=== PATIENT | female | born 1970 | race Caucasian/White ===

== ENCOUNTER → 2017-01-10 | Outpatient (CLI) | payer BC ==
--- NOTE | 2017-01-10 08:05 | US ---
EXAMINATION TYPE: US liver DATE OF EXAM: 01/10/2017 COMPARISON: NONE CLINICAL HISTORY: R94.5 Abnormal LFT. EXAM MEASUREMENTS: Liver Length: 12.0 cm Gallbladder Wall: 0.3 cm CBD: 0.4 cm Right Kidney: 11.5 x 4.7 x 5.3 cm Pancreas: visualized portions wnl Liver: wnl Gallbladder: No stones seen Evidence for sonographic Carmona's sign: No CBD: wnl Right Kidney: No hydronephrosis or masses seen IMPRESSION: No worrisome intrahepatic mass or intrahepatic ductal dilatation is seen.
== END | disposition home or self-care (01) ==
LOC: RADUSWWP 06:53
PROVIDERS: ATTEND Family Medicine
DX: R94.5 Abnormal results of liver function studies (principal)
CPT/HCPCS: 76705

== ENCOUNTER → 2017-09-17 | Outpatient (CLI) | payer BC ==
--- NOTE | 2017-09-19 07:45 | MM ---
Reason for exam: screening (asymptomatic). Last mammogram was performed 2 years and 6 months ago. History: Benign right mammotome panel of the right breast, October 06, 2005. Benign excisional biopsy of the left breast, April 01, 2001. Took hormonal contraceptives for 10 years beginning at age 15. Physical Findings: A clinical breast exam by your physician is recommended on an annual basis and results should be correlated with mammographic findings. MG 3D Screening Mammo W/Cad Bilateral CC and MLO view(s) were taken. Prior study comparison: March 02, 2015, bilateral MG screening mammo w CAD. February 23, 2014, bilateral MG screening mammo w CAD. No suspicious abnormality. No significant changes when compared with prior studies. ASSESSMENT: Negative, BI-RAD 1 RECOMMENDATION: Routine screening mammogram of both breasts in 1 year.
== END | disposition home or self-care (01) ==
LOC: RADMAMWWP 15:51
PROVIDERS: ATTEND Obstetrics & Gynecology
DX: Z12.31 Encounter for screening mammogram for malignant neoplasm of breast (principal)
CPT/HCPCS: 77063; 77067

== ENCOUNTER → 2019-08-07 | Outpatient (CLI) | payer BC ==
--- NOTE | 2019-08-08 14:40 | MM ---
Reason for exam: screening (asymptomatic). Last mammogram was performed 1 year and 11 months ago. History: Benign right mammotome panel of the right breast, October 06, 2005. Benign excisional biopsy of the left breast, April 01, 2001. Took hormonal contraceptives for 10 years beginning at age 15. Physical Findings: A clinical breast exam by your physician is recommended on an annual basis and results should be correlated with mammographic findings. MG 3D Screening Mammo W/Cad Bilateral CC and MLO view(s) were taken. Prior study comparison: September 17, 2017, bilateral MG 3d screening mammo w/cad. March 02, 2015, bilateral MG screening mammo w CAD. The breast tissue is heterogeneously dense. This may lower the sensitivity of mammography. There is no discrete abnormality. No significant changes when compared with prior studies. ASSESSMENT: Negative, BI-RAD 1 RECOMMENDATION: Routine screening mammogram of both breasts in 1 year.
== END | disposition home or self-care (01) ==
LOC: RADMAMWWP 11:09
PROVIDERS: ATTEND Family Medicine
DX: Z12.31 Encounter for screening mammogram for malignant neoplasm of breast (principal)
CPT/HCPCS: 77063; 77067

== ENCOUNTER → 2020-06-24 | Outpatient (CLI) | payer BC | END | disposition home or self-care (01) | LOC: LABWHC1 11:50 | PROVIDERS: ATTEND Family Medicine | DX: Z03.89 Encounter for observation for other suspected diseases and conditions ruled out (principal) | CPT/HCPCS: U0003; C9803 ==

== ENCOUNTER → 2021-01-03 | Outpatient (CLI) | payer BC ==
--- NOTE | 2021-01-05 14:08 | MM ---
Reason for exam: screening (asymptomatic). Last mammogram was performed 1 year and 5 months ago. History: Patient is postmenopausal. Benign right mammotome panel of the right breast, October 06, 2005. Benign excisional biopsy of the left breast, April 01, 2001. Took hormonal contraceptives for 10 years beginning at age 15. Taking progesterone for 3 years beginning at age 48. Physical Findings: A clinical breast exam by your physician is recommended on an annual basis and results should be correlated with mammographic findings. MG 3D Screening Mammo W/Cad Bilateral CC and MLO view(s) were taken. Prior study comparison: August 07, 2019, bilateral MG 3d screening mammo w/cad. September 17, 2017, bilateral MG 3d screening mammo w/cad. The breast tissue is heterogeneously dense. This may lower the sensitivity of mammography. Previous mammotome biopsy in the right breast. ASSESSMENT: Benign, BI-RAD 2 RECOMMENDATION: Routine screening mammogram of both breasts in 1 year.
== END | disposition home or self-care (01) ==
LOC: RADMAMWWP 16:05
PROVIDERS: ATTEND Family Medicine
DX: Z12.31 Encounter for screening mammogram for malignant neoplasm of breast (principal); Z78.0 Asymptomatic menopausal state
CPT/HCPCS: 77063; 77067

== ENCOUNTER 2021-06-19 11:11 | Emergency (ER) | payer BC ==
[2021-06-19 11:25] VITALS: PULSE 96; RESP 20; TEMP 97.6
[2021-06-19] MEDS ORDERED: SODIUM CHLORIDE 0.9% 1,000 ML IV ONE (12:23)
--- NOTE | 2021-06-19 12:25 | ED ---
Dizziness HPI - General Chief Complaint: Dizziness Stated Complaint: Dizzy; lightheaded Time Seen by Provider: 06/19/21 12:22 Source: patient Mode of arrival: wheelchair Limitations: no limitations - History of Present Illness Initial Comments: Holly is a healthy 51-year-old female presents the ER today via private vehicle for evaluation of fatigue, myalgias, lightheadedness. Patient reports she's been feeling unwell for a few days, she did have diarrhea earlier in the week but has been trying to eat and drink to stay hydrated. She states that she doesn't feel well, feels like she has the flu. Patient was vaccinated for COVID-19 and did have her booster shot approximately 3 weeks ago. 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 - Related Data Allergies Allergy/AdvReac Type Severity Reaction Status Date / Time Penicillins Allergy Rash/Hives Verified 06/19/21 11:25 Sulfa (Sulfonamide Allergy Rash/Hives Verified 06/19/21 11:25 Antibiotics) Review of Systems ROS Statement: Those systems with pertinent positive or pertinent negative responses have been documented in the HPI. ROS Other: All systems not noted in ROS Statement are negative. Past Medical History Past Medical History: No Reported History History of Any Multi-Drug Resistant Organisms: None Reported Past Surgical History: Breast Surgery Past Psychological History: Anxiety Smoking Status: Never smoker Past Alcohol Use History: None Reported Past Drug Use History: None Reported General Exam - General Exam Comments Initial Comments: Physical Exam GENERAL: Patient is well-developed and well-nourished. Patient is nontoxic and well-hydrated and is in no distress. HENT: Normocephalic, Atraumatic. EYES: PERRL, EOMI PULMONARY: Unlabored respirations. CARDIOVASCULAR: RRR Warm and well perfused extremities ABDOMEN: Non-distended SKIN: No rashes or bruising : Deferred NEUROLOGIC: Alert and oriented Normal speech Normal gait MUSCULOSKELETAL: Moving all extremities with no apparent injury PSYCHIATRIC: No SI/HI Limitations: no limitations Course Vital Signs 06/19/21 11:20 Temperature 97.6 F Pulse Rate 96 Respiratory 20 Rate O2 Sat by Pulse 100 Oximetry EKG Findings - EKG Comments: EKG Findings:: EKG was obtained due to complaint of lightheadedness, EKG was obtained 1132 rate is 101 rhythm is sinus tachycardia, normal axis, normal intervals, LA 142 QRS 90 QTc 4:[address] elevations or depressions there is no evidence of acute ischemia or infarction. Medical Decision Making - Medical Decision Making She was seen and evaluated, history is obtained from patient, history and physical exam was unremarkable, patient with flulike illness, labs are obtained there is no signs of dehydration or significant joint abnormality, troponin is negative, patient received 1 L IV fluid reported feeling better. Discussed with patient that she likely has a viral syndrome recommended continued supportive care and outpatient follow-up primary care physician. - Lab Data Result diagrams: 06/19/21 12:48 06/19/21 12:48 Lab Results 06/19/21 06/19/21 06/19/21 Range/Units 12:33 12:48 12:48 WBC 6.9 (3.8-10.6) k/uL RBC 5.10 (3.80-5.40) m/uL Hgb 15.1 (11.4-16.0) gm/dL Hct 46.4 H (34.0-46.0) % MCV 91.0 (80.0-100.0) fL MCH 29.7 (25.0-35.0) pg MCHC 32.6 (31.0-37.0) g/dL RDW 12.4 (11.5-15.5) % Plt Count 321 (150-450) k/uL MPV 7.0 Neutrophils % 72 % Lymphocytes % 18 % Monocytes % 6 % Eosinophils % 2 % Basophils % 1 % Neutrophils # 4.9 (1.3-7.7) k/uL Lymphocytes # 1.2 (1.0-4.8) k/uL Monocytes # 0.4 (0-1.0) k/uL Eosinophils # 0.1 (0-0.7) k/uL Basophils # 0.0 (0-0.2) k/uL Sodium 138 (137-145) mmol/L Potassium 4.7 (3.5-5.1) mmol/L Chloride 107 (98-107) mmol/L Carbon Dioxide 21 L (22-30) mmol/L Anion Gap 10 mmol/L BUN 14 (7-17) mg/dL Creatinine 0.54 (0.52-1.04) mg/dL Est GFR (CKD-EPI)AfAm >90 (>60 ml/min/1.73 sqM) Est GFR (CKD-EPI)NonAf >90 (>60 ml/min/1.73 sqM) Glucose 96 (74-99) mg/dL Calcium 9.2 (8.4-10.2) mg/dL Total Bilirubin 0.3 (0.2-1.3) mg/dL AST 36 (14-36) U/L ALT 43 H (4-34) U/L Alkaline Phosphatase 57 (38-126) U/L Troponin I (0.000-0.034) ng/mL Total Protein 7.4 (6.3-8.2) g/dL Albumin 4.3 (3.5-5.0) g/dL Coronavirus (PCR) Not Detected (Not Detectd) 06/19/21 Range/Units 12:48 WBC (3.8-10.6) k/uL RBC (3.80-5.40) m/uL Hgb (11.4-16.0) gm/dL Hct (34.0-46.0) % MCV (80.0-100.0) fL MCH (25.0-35.0) pg MCHC (31.0-37.0) g/dL RDW (11.5-15.5) % Plt Count (150-450) k/uL MPV Neutrophils % % Lymphocytes % % Monocytes % % Eosinophils % % Basophils % % Neutrophils # (1.3-7.7) k/uL Lymphocytes # (1.0-4.8) k/uL Monocytes # (0-1.0) k/uL Eosinophils # (0-0.7) k/uL Basophils # (0-0.2) k/uL Sodium (137-145) mmol/L Potassium (3.5-5.1) mmol/L Chloride (98-107) mmol/L Carbon Dioxide (22-30) mmol/L Anion Gap mmol/L BUN (7-17) mg/dL Creatinine (0.52-1.04) mg/dL Est GFR (CKD-EPI)AfAm (>60 ml/min/1.73 sqM) Est GFR (CKD-EPI)NonAf (>60 ml/min/1.73 sqM) Glucose (74-99) mg/dL Calcium (8.4-10.2) mg/dL Total Bilirubin (0.2-1.3) mg/dL AST (14-36) U/L ALT (4-34) U/L Alkaline Phosphatase (38-126) U/L Troponin I <0.012 (0.000-0.034) ng/mL Total Protein (6.3-8.2) g/dL Albumin (3.5-5.0) g/dL Coronavirus (PCR) (Not Detectd) Disposition Clinical Impression: Viral syndrome Disposition: HOME SELF-CARE Condition: Stable Instructions (If sedation given, give patient instructions): Lightheadedness (ED) Is patient prescribed a controlled substance at d/c from ED?: No Referrals: Georges Montes MD [Primary Care Provider] - 1-2 days
[2021-06-19 12:56] LABS: Basophils % (A) 1 %; Eosinophils # (A) 0.1 k/uL (0-0.7); Eosinophils % (A) 2 %; HCT 46.4 % (34.0-46.0); HGB 15.1 gm/dL (11.4-16.0); Lymphocytes # (A) 1.2 k/uL (1.0-4.8); Lymphocytes % (A) 18 %; MCH 29.7 pg (25.0-35.0); MCHC 32.6 g/dL (31.0-37.0); Monocytes # (A) 0.4 k/uL (0-1.0); Monocytes % (A) 6 %; Neutrophils # (A) 4.9 k/uL (1.3-7.7); Neutrophils % (A) 72 %; Platelet Count 321 k/uL (150-450); RDW 12.4 % (11.5-15.5); WBC 6.9 k/uL (3.8-10.6)
[2021-06-19 13:07] LABS: ALT 43 U/L (4-34); AST 36 U/L (14-36); African American GFR (CKD) >90 (>60 ml/min/1.73 sqM); Albumin 4.3 g/dL (3.5-5.0); Alkaline Phosphatase 57 U/L (38-126); Anion Gap 10 mmol/L; Blood Urea Nitrogen 14 mg/dL (7-17); Calcium 9.2 mg/dL (8.4-10.2); Carbon Dioxide 21 mmol/L (22-30); Chloride 107 mmol/L (98-107); Glucose 96 mg/dL (74-99); Non-African American GFR(CKD) >90 (>60 ml/min/1.73 sqM); Potassium 4.7 mmol/L (3.5-5.1); Sodium 138 mmol/L (137-145); Total Bilirubin 0.3 mg/dL (0.2-1.3); Total Protein 7.4 g/dL (6.3-8.2)
== END 2021-06-19 14:42 | disposition home or self-care (01) ==
LOC: EC 11:11
DX: B34.9 Viral infection, unspecified (principal); F41.9 Anxiety disorder, unspecified; Z20.822 Contact with and (suspected) exposure to COVID-19; Z88.0 Allergy status to penicillin; Z88.2 Allergy status to sulfonamides
CPT/HCPCS: 36415; 80053; 84484; 85025; 87635; 93005; 99284

== ENCOUNTER → 2022-03-09 | Outpatient (CLI) | payer BC ==
--- NOTE | 2022-03-12 18:34 | MM ---
Reason for Exam: Screening (asymptomatic). Last mammogram was performed 1 year(s) and 2 month(s) ago. Patient History: Menarche at age 11. First Full-Term at age 26. Postmenopausal. Currently using Estrogen, starting at age 48. Currently using Progesterone, beginning at age 48 for 3 years. Hormonal Contraceptives for 10 years from age 15 until age 25. 10/06/2005, Benign Core Biopsy on the right side. 04/01/2001, Benign Excisional Biopsy on the left side. Risk Values: Haley 5 year model risk: 1.8%. NCI Lifetime model risk: 13.8%. Prior Study Comparison: 03/02/2015 Bilateral Screening Mammogram, [facility]. 09/17/2017 Bilateral Screening Mammogram, [facility]. 08/07/2019 Bilateral Screening Mammogram, [facility]. 01/03/2021 Bilateral Screening Mammogram, [facility]. Tissue Density: There are scattered fibroglandular densities. Findings: Analyzed By CAD. Microclip central right breast from prior biopsy. Chronic nodularity posterior central right MLO view. No significant change from prior exams. Overall Assessment: Benign, BI-RAD 2 Management: Screening Mammogram of both breasts in 1 year. 1. Patient should continue monthly self breast exams. 2. A clinical breast exam by your physician is recommended on an annual basis. 3. This exam should not preclude additional follow-up of suspicious palpable abnormalities. Electronically signed and approved by: Karina Nuno M.D. Radiologist
== END | disposition home or self-care (01) ==
LOC: RADMAMWWP 13:47
PROVIDERS: ATTEND Obstetrics & Gynecology
DX: Z12.31 Encounter for screening mammogram for malignant neoplasm of breast (principal); Z78.0 Asymptomatic menopausal state
CPT/HCPCS: 77063; 77067

== ENCOUNTER → 2022-07-27 | Outpatient (CLI) | payer BC ==
[2022-07-29 19:52] LABS: Peanut IgG 2.7 mcg/mL (<2.0)
[2022-07-29 19:53] LABS: Beef IgG 9.1 mcg/mL (<2.0); Cow's Milk IgG 38.7 mcg/mL (<2.0); Pork IgG 2.9 mcg/mL (<2.0); Soybean IgG <2.0 mcg/mL (<2.0); Tomato IgG 2.4 mcg/mL (<2.0)
[2022-07-29 19:54] LABS: Chicken Meat IgG <2.0 mcg/mL (<2.0); Corn IgG 4.4 mcg/mL (<2.0); Potato IgG <2.0 mcg/mL (<2.0); Wheat IgG 2.4 mcg/mL (<2.0)
== END | disposition home or self-care (01) ==
LOC: LABWHC1 10:43
PROVIDERS: ATTEND Otolaryngology
DX: J32.9 Chronic sinusitis, unspecified (principal)
CPT/HCPCS: 36415; 86001

== ENCOUNTER → 2023-03-12 | Outpatient (CLI) | payer BC ==
--- NOTE | 2023-03-13 20:35 | MM ---
Reason for Exam: Screening (asymptomatic). Last screening mammogram was performed 12 month(s) ago. Patient History: Menarche at age 11. First Full-Term at age 26. Postmenopausal. Currently using Estrogen, starting at age 48. Currently using Progesterone, beginning at age 48 for 3 years. Hormonal Contraceptives for 10 years from age 15 until age 25. 10/06/2005, Benign Core Biopsy on the right side. 04/01/2001, Benign Excisional Biopsy on the left side. Risk Values: Haley 5 year model risk: 1.9%. NCI Lifetime model risk: 13.6%. Prior Study Comparison: 08/07/2019 Bilateral Screening Mammogram, [facility]. 01/03/2021 Bilateral Screening Mammogram, [facility]. 03/09/2022 Bilateral MG 3D screening mammo w/cad, [facility]. Tissue Density: The breast tissue is heterogeneously dense. This may lower the sensitivity of mammography. Findings: Analyzed By CAD. Chronic nodularity posterior central right cc view. Microclip right breast from prior biopsy. There is no suspicious group of microcalcifications or new suspicious mass in either breast. Overall Assessment: Benign, BI-RAD 2 Management: Screening Mammogram of both breasts in 1 year. . Patient should continue monthly self-breast exams. A clinical breast exam by your physician is recommended on an annual basis. This exam should not preclude additional follow-up of suspicious palpable abnormalities. Note on Haley scores and lifetime risk: 1. A Haley score greater than 3% is considered moderate risk. If this is the case, consider specialist referral to assess eligibility for a risk reducing agent. 2. If overall lifetime risk for the development of breast cancer is 20% or higher, the patient may qualify for future screening with alternating mammogram and breast MRI. Electronically signed and approved by: Karina Nuno M.D. Radiologist
== END | disposition home or self-care (01) ==
LOC: RADMAMWWP 13:29
PROVIDERS: ATTEND Obstetrics & Gynecology
DX: Z12.31 Encounter for screening mammogram for malignant neoplasm of breast (principal); Z78.0 Asymptomatic menopausal state
CPT/HCPCS: 77063; 77067

== ENCOUNTER → 2023-08-09 | Outpatient (CLI) | payer BC ==
[2023-08-09 15:16] LABS: Albumin 4.2 g/dL (3.8-4.9); Protein, Total 6.8 g/dL (6.2-8.2)
[2023-08-10 11:19] LABS: Free Kappa Lt Chain Qnt, Serum 1.68 mg/dL (0.33-1.94); Free Lambda Lt Chain Qnt, Seru 1.02 mg/dL (0.57-2.63)
[2023-08-10 11:42] LABS: Angiotensin-1 Converting Enz. 25 U/L (8-52)
[2023-08-10 13:43] LABS: C-ANCA <1:20 Titer (<1:20)
[2023-08-10 15:10] LABS: Gamma Globulin 0.93 g/dL (0.70-1.50)
== END | disposition home or self-care (01) ==
LOC: LABWHC1 10:21
PROVIDERS: ATTEND Otolaryngology
DX: J01.91 Acute recurrent sinusitis, unspecified (principal)
CPT/HCPCS: 36415; 82164; 82784; 82785; 83883; 84165; 86255; 86334

== ENCOUNTER → 2024-02-27 | Outpatient (CLI) | payer BC ==
--- NOTE | 2024-02-27 12:33 | US ---
EXAMINATION TYPE: US kidneys/renal and bladder DATE OF EXAM: 02/27/2024 COMPARISON: NONE CLINICAL INDICATION: Female, 54 years old with history of R31.29 HEMATURIA; Pt states right side ABD pain with hematuria EXAM MEASUREMENTS: Right Kidney: cm Left Kidney: cm Right Kidney: No evidence of hydro, lower pole gassed out Left Kidney: No evidence of hydro, lower pole gassed out, possible angiomyolipoma mid= 0.6 x 0.6 x 0. 5 cm Bladder: Possible calculus at right ureteral/bladder junction= 0.9 x 0.7 x 0.8 cm Bilateral Jets seen: Yes There is no evidence for hydronephrosis at this point in time. The urinary bladder is anechoic. Yousif ateral ureteral jets are seen. IMPRESSION: 1. 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 2. I cannot exclude a calculus at the right UVJ without hydronephrosis. Consider unenhanced CT.
== END | disposition home or self-care (01) ==
LOC: RADUSWWP 08:27
PROVIDERS: ATTEND Family Medicine
DX: R31.29 Other microscopic hematuria (principal)
CPT/HCPCS: 76770

== ENCOUNTER → 2024-03-07 | Outpatient (CLI) | payer BC ==
--- NOTE | 2024-03-07 10:15 | CT ---
EXAMINATION TYPE: CT abdomen w con CT DLP: 793 mGycm, Automated exposure control for dose reduction was used. DATE OF EXAM: 03/07/2024 8:08 AM COMPARISON: Renal ultrasound 02/27/2024 CLINICAL INDICATION:Female, 54 years old with history of R10.9 UNSPECIFIED ABDOMINAL PAIN; Abn US TECHNIQUE: Standard CT of the abdomen following the administration of 100 cc of Isovue 300 IV contr ast material and oral contrast. Coronal and sagittal reformats were performed. FINDINGS: LOWER CHEST: Linear scarring and/or atelectasis within the bilateral lower lobes and lingula. ABDOMEN LIVER: Unremarkable GALLBLADDER AND BILE DUCTS: Unremarkable. PANCREAS: Unremarkable. SPLEEN: Unremarkable. ADRENAL GLANDS: Unremarkable. KIDNEYS AND URETERS: No evidence of hydronephrosis or renal calculus. The kidneys enhance symmetrical ly. Contrast is demonstrated within both collecting systems on the delayed phase. There is a 3 mm hyp odense focus within the lateral aspect of the mid left kidney which may correspond to ultrasound find ing. This is too small to accurately characterize. STOMACH AND BOWEL: Stomach is unremarkable. Small periampullary duodenal diverticulum. EEnteric contr ast reaches the mid small bowel no focal bowel wall thickening or surrounding inflammatory changes id entified. No evidence of bowel obstruction. PERITONEUM: No evidence of pneumoperitoneum or free fluid. VASCULATURE: No evidence of aortic aneurysm. MUSCULOSKELETAL: No acute osseous abnormalities. Minimal retrolisthesis of L4 on L5 without pars defe cts. Minimal multilevel degenerative disc disease. LYMPH NODES: No gross evidence for lymphadenopathy. SOFT TISSUE/ABDOMINAL WALL: Unremarkable IMPRESSION: 1. No CT evidence for acute process. 2. Tiny 3 mm hypodense focus within the left mid kidney which may represent ultrasound finding. Too s mall to accurately characterize but may represent a cyst versus angiomyolipoma.
== END | disposition home or self-care (01) ==
LOC: RADCTMAIN 07:19
PROVIDERS: ATTEND Family Medicine
DX: D17.9 Benign lipomatous neoplasm, unspecified (principal)
CPT/HCPCS: 74160; Q9967

== ENCOUNTER → 2024-05-08 | Outpatient (CLI) | payer BC ==
--- NOTE | 2024-05-09 08:01 | MM ---
Reason for Exam: Screening (asymptomatic). Last mammogram was performed 1 year(s) and 2 month(s) ago. Patient History: Menarche at age 11. First Full-Term at age 26. Postmenopausal. Currently using Estrogen, starting at age 48. Currently using Progesterone, beginning at age 48 for 3 years. Hormonal Contraceptives for 10 years from age 15 until age 25. 10/06/2005, Benign Core Biopsy on the right side. 04/01/2001, Benign Excisional Biopsy on the left side. Risk Values: Haley 5 year model risk: 2.0%. NCI Lifetime model risk: 13.3%. Prior Study Comparison: 01/03/2021 Bilateral Screening Mammogram, [facility]. 03/09/2022 Bilateral MG 3D screening mammo w/cad, [facility]. 03/12/2023 Bilateral MG 3D screening mammo w/cad, [facility]. Tissue Density: The breasts are heterogeneously dense, which may obscure small masses. Findings: Analyzed By CAD. There is no suspicious group of microcalcifications or new suspicious mass in either breast. Chronic nodularity or lymph node in the right breast. Surgical clip in the right breast stable. Benign calcification. Overall Assessment: Benign, BI-RAD 2 Management: Screening Mammogram of both breasts in 1 year. . Patient should continue monthly self-breast exams. A clinical breast exam by your physician is recommended on an annual basis. This exam should not preclude additional follow-up of suspicious palpable abnormalities. Note on Haley scores and lifetime risk: 1. A Haley score greater than 3% is considered moderate risk. If this is the case, consider specialist referral to assess eligibility for a risk reducing agent. 2. If overall lifetime risk for the development of breast cancer is 20% or higher, the patient may qualify for future screening with alternating mammogram and breast MRI. [facility], , 05/09/2024 7:58 AM. Electronically signed and approved by: Kevin Elizabeth M.D. Radiologis
== END | disposition home or self-care (01) ==
LOC: RADMAMWWP 15:56
PROVIDERS: ATTEND Obstetrics & Gynecology
CPT/HCPCS: 77063; 77067